=== PATIENT | female | born 1995 | race Caucasian/White ===

== ENCOUNTER 2017-11-01 13:41 | Emergency (ER) | payer BC ==
[~2017-11-01] VITALS: Ht 170.2 cm; Wt 59.0 kg
--- NOTE | 2017-11-01 13:44 | ER Report ---
History and Physical Time Seen By MD: 13:44 HPI/ROS CHIEF COMPLAINT: Vaginal bleeding HISTORY OF PRESENT ILLNESS: 22-year-old female reports concern for miscarriage based on Google search for vaginal bleeding. Her last period was from October 06 to October 09. He is expecting her period in a few days but has noticed some mild but dark vaginal bleeding recently. Feels like premenstrual spotting approximately 1 panty liner per day onset was 2 weeks ago. She recently started an antidepressant duloxetine this month is unsure if it is improving her depression she denies any suicidal thoughts. No fevers chills nausea or vomiting. No other concerns or complaints today. She has not tried a home test. REVIEW OF SYSTEMS: Constitutional: No fever, no chills. Eyes: No discharge. ENT: No sore throat. Cardiovascular: No chest pain, no palpitations. Respiratory: No cough, no shortness of breath. Gastrointestinal: No abdominal pain, no vomiting. Genitourinary: No hematuria. Musculoskeletal: No back pain. Skin: No rashes. Neurological: No headache. Allergies: Coded Allergies: No Known Drug Allergies (Unverified , 11/01/17) Home Meds Active Scripts Metronidazole (Metrogel-Vaginal) 0.75 % Gel.w.appl, 1 ALAN VA BID for 7 Days, #1 BOX Prov:WESLEY COVINGTON MD 11/01/17 Reported Medications Norgestimate-Ethinyl Estradiol (TRINESSA) 1 Each Tablet, 1 EACH PO QDAY 11/01/17 Duloxetine HCl (Duloxetine HCl) 60 Mg Capsule.dr, 1 CAP PO QDAY 11/01/17 Constitutional Vital Sign - Last 24 Hours 11/01/17 11/01/17 13:41 14:31 Temp 98.4 Pulse 124 91 Resp 16 16 B/P (MAP) 133/90 125/86 (99) Pulse Ox 95 98 O2 Delivery Room Air Room Air Physical Exam General Appearance: The patient is alert, has no immediate need for airway protection and no signs of toxicity. No acute distress Eyes: Pupils equal and round no pallor or injection. ENT, Mouth: Mucous membranes are moist. Respiratory: There are no retractions, lungs are clear to auscultation. Cardiovascular: Regular rate and rhythm. No murmurs gallops or rubs Gastrointestinal: Abdomen is soft and non tender, no masses, bowel sounds normal. : Normal external genitalia, mild dark blood without active oozing from cause , no signs of cervicitis, no appreciable discharge, bimanual exam negative for mass or tenderness bilateral adnexa or uterus, no CMT. Chaperonne: Yoon Perez RN Neurological: Normal Skin: Warm and dry, no rashes. Musculoskeletal: Neck is supple non tender. Extremities are nontender, nonswollen and have full range of motion. No edema DIFFERENTIAL DIAGNOSIS: After history and physical exam differential diagnosis was considered for normal menses, dysfunctional uterine bleeding, menorrhagia, with 1st trimester spotting, threatened , inevitable , incomplete , sexually-transmitted infection; no signs of ovarian torsion or ectopic . Medical Decision Making Data Points Result Diagram: 11/01/17 1435 11/01/17 1435 Laboratory Hematology Test 11/01/17 13:47 11/01/17 14:35 Urine Color Maryann Urine Clarity Slightly-cloudy Urine pH 5.0 pH (4.8-9.5) Urine Specific [place] 1.025 Urine Protein Negative mg/dL (NEGATIVE) Urine Glucose (UA) Negative mg/dL (NEGATIVE) Urine Ketones Trace mg/dL (NEGATIVE) Urine Blood Moderate (NEGATIVE) Urine Nitrite Negative (NEGATIVE) Urine Bilirubin Negative (NEGATIVE) Urine Urobilinogen 4.0 mg/dL (0.2-1.9) Urine Leukocyte Esterase Trace (NEGATIVE) Urine RBC 2 /HPF (0-2/HPF) Urine WBC 18 /HPF (0-5/HPF) Urine Squamous Epithelial Cells Many /LPF (</=FEW) Urine Bacteria Few /HPF (NONE-FEW) Urine Hyaline Casts Few /LPF (NONE-FEW) Urine Mucus Few /HPF (NONE-FEW) Urine HCG, Qualitative Negative (NEGATIVE) Red Blood Count 5.63 M/uL (4.17-5.56) Mean Corpuscular Volume 87.6 fL (80.0-96.0) Mean Corpuscular Hemoglobin 29.4 pg (26.0-33.0) Mean Corpuscular Hemoglobin Concent 33.6 g/dL (32.0-36.0) Red Cell Distribution Width 13.4 % (11.5-14.5) Mean Platelet Volume 9.1 fL (7.2-11.1) Neutrophils (%) (Auto) 56.2 % (39.4-72.5) Lymphocytes (%) (Auto) 29.9 % (17.6-49.6) Monocytes (%) (Auto) 11.2 % (4.1-12.4) Eosinophils (%) (Auto) 1.9 % (0.4-6.7) Basophils (%) (Auto) 0.8 % (0.3-1.4) Nucleated RBC Relative Count (auto) 0.1 /100WBC Neutrophils # (Auto) 2.5 K/uL (2.0-7.4) Lymphocytes # (Auto) 1.4 K/uL (1.3-3.6) Monocytes # (Auto) 0.5 K/uL (0.3-1.0) Eosinophils # (Auto) 0.1 K/uL (0.0-0.5) Basophils # (Auto) 0.0 K/uL (0.0-0.1) Nucleated RBC Absolute Count (auto) 0.01 K/uL Peripheral Blood Smear No Y/N Sodium Level 140 mmol/L (137-145) Potassium Level 3.9 mmol/L (3.5-5.0) Chloride Level 100 mmol/L (98-107) Carbon Dioxide Level 24 mmol/L (22-31) Blood Urea Nitrogen 12 mg/dl (7-18) Creatinine 0.80 mg/dl (0.52-1.04) Glomerular Filtration Rate Calc > 60.0 Random Glucose 95 mg/dl (75-110) Calcium Level 9.9 mg/dl (8.4-10.2) Chemistry Test 11/01/17 13:47 11/01/17 14:35 Urine Color Maryann Urine Clarity Slightly-cloudy Urine pH 5.0 pH (4.8-9.5) Urine Specific [place] 1.025 Urine Protein Negative mg/dL (NEGATIVE) Urine Glucose (UA) Negative mg/dL (NEGATIVE) Urine Ketones Trace mg/dL (NEGATIVE) Urine Blood Moderate (NEGATIVE) Urine Nitrite Negative (NEGATIVE) Urine Bilirubin Negative (NEGATIVE) Urine Urobilinogen 4.0 mg/dL (0.2-1.9) Urine Leukocyte Esterase Trace (NEGATIVE) Urine RBC 2 /HPF (0-2/HPF) Urine WBC 18 /HPF (0-5/HPF) Urine Squamous Epithelial Cells Many /LPF (</=FEW) Urine Bacteria Few /HPF (NONE-FEW) Urine Hyaline Casts Few /LPF (NONE-FEW) Urine Mucus Few /HPF (NONE-FEW) Urine HCG, Qualitative Negative (NEGATIVE) White Blood Count 4.5 k/uL (4.5-11.0) Red Blood Count 5.63 M/uL (4.17-5.56) Hemoglobin 16.6 g/dL (12.0-16.0) Hematocrit 49.3 % (34.0-47.0) Mean Corpuscular Volume 87.6 fL (80.0-96.0) Mean Corpuscular Hemoglobin 29.4 pg (26.0-33.0) Mean Corpuscular Hemoglobin Concent 33.6 g/dL (32.0-36.0) Red Cell Distribution Width 13.4 % (11.5-14.5) Platelet Count 252 K/uL (150-450) Mean Platelet Volume 9.1 fL (7.2-11.1) Neutrophils (%) (Auto) 56.2 % (39.4-72.5) Lymphocytes (%) (Auto) 29.9 % (17.6-49.6) Monocytes (%) (Auto) 11.2 % (4.1-12.4) Eosinophils (%) (Auto) 1.9 % (0.4-6.7) Basophils (%) (Auto) 0.8 % (0.3-1.4) Nucleated RBC Relative Count (auto) 0.1 /100WBC Neutrophils # (Auto) 2.5 K/uL (2.0-7.4) Lymphocytes # (Auto) 1.4 K/uL (1.3-3.6) Monocytes # (Auto) 0.5 K/uL (0.3-1.0) Eosinophils # (Auto) 0.1 K/uL (0.0-0.5) Basophils # (Auto) 0.0 K/uL (0.0-0.1) Nucleated RBC Absolute Count (auto) 0.01 K/uL Peripheral Blood Smear No Y/N Glomerular Filtration Rate Calc > 60.0 Calcium Level 9.9 mg/dl (8.4-10.2) Urinalysis Test 11/01/17 13:47 Urine Color Maryann Urine Clarity Slightly-cloudy Urine pH 5.0 pH (4.8-9.5) Urine Specific [place] 1.025 Urine Protein Negative mg/dL (NEGATIVE) Urine Glucose (UA) Negative mg/dL (NEGATIVE) Urine Ketones Trace mg/dL (NEGATIVE) Urine Blood Moderate (NEGATIVE) Urine Nitrite Negative (NEGATIVE) Urine Bilirubin Negative (NEGATIVE) Urine Urobilinogen 4.0 mg/dL (0.2-1.9) Urine Leukocyte Esterase Trace (NEGATIVE) Urine RBC 2 /HPF (0-2/HPF) Urine WBC 18 /HPF (0-5/HPF) Urine Squamous Epithelial Cells Many /LPF (</=FEW) Urine Bacteria Few /HPF (NONE-FEW) Urine Hyaline Casts Few /LPF (NONE-FEW) Urine Mucus Few /HPF (NONE-FEW) Urine HCG, Qualitative Negative (NEGATIVE) Microbiology Microbiology Date/Time Source Procedure Growth Status 11/01/17 14:25 Pelvic SRAVAN Preparation - Final Complete 11/01/17 14:25 Vaginal Wet Prep - Final Complete ED Course/Re-evaluation ED Course Plan of care agreed upon predators placed. Urine screen negative. Pelvic exam negative chlamydia and gonorrhea swabs SRAVAN sent Re-evaluation 11/01/2017 2:51:09 pm pelvic swab results discussed home care medication use follow-up and reasons to return to the ED were discussed she is on control pills already I recommended she follow up with her PCP to assess for need for medication change to prevent further bleeding. Decision to Disposition Date: Nov 01, 2017 Decision to Disposition Time: 14:45 Depart Departure Latest Vital Signs Vital Signs Date Time Temp Pulse Resp B/P (MAP) Pulse Ox O2 Delivery O2 Flow Rate FiO2 11/01/17 14:31 91 16 125/86 (99) 98 Room Air 11/01/17 13:41 98.4 Impression: Primary Impression: Dysfunctional uterine bleeding Additional Impression: BV (bacterial vaginosis) Condition: Improved Disposition: HOME OR SELF-CARE New Scripts Metronidazole (Metrogel-Vaginal) 0.75 % Gel.w.appl 1 ALAN VA BID for 7 Days, #1 BOX Prov: WESLEY COVINGTON MD 11/01/17 Patient Instructions: Bacterial Vaginosis (ED), Dysfunctional Uterine Bleeding (ED) Problem Qualifiers WESLEY COVINGTON MD Nov 01, 2017 13:44
[2017-11-01] MEDS ORDERED: NORG1TAB98 PO (13:49)
[2017-11-01] MEDS ORDERED: DULO60CA7 PO (13:49)
[2017-11-01 14:46] LABS: PLATELET COUNT, AUTOMATED 252 K/uL (150-450)
[2017-11-01] MEDS ORDERED: METR70GE2 VA (14:48)
[2017-11-01 15:04] VITALS: BP 118/69
== END 2017-11-01 15:04 | disposition home or self-care (01) ==
LOC: ER 14:10
DX: N76.0 Acute vaginitis (principal); N93.8 Other specified abnormal uterine and vaginal bleeding
CPT/HCPCS: 36415; 81001; 81025; 82310; 82374; 82435; 82565; 82947; 84132; 84295; 84520; 85025; 87210; 87491; 87591; 99283

== ENCOUNTER 2017-12-26 02:57 | Emergency (ER) | payer BC ==
[~2017-12-26 02:57] MED LIST: DULO60CA7 PO; METR70GE2 VA; NORG1TAB98 PO
--- NOTE | 2017-12-26 03:09 | ER Report ---
History and Physical Time Seen By MD: 03:01 HPI/ROS CHIEF COMPLAINT: Back pain HISTORY OF PRESENT ILLNESS: 22-year-old female presents complaining of right flank pain. She states she's had chronic low back pain for many years. Over the last week. She's been having more right sided back pain with urinary urgency. Patient states her last menstrual was one month ago. Patient denies nausea or vomiting. REVIEW OF SYSTEMS: Respiratory: No cough, no dyspnea. Cardiovascular: No chest pain, no palpitations. Gastrointestinal: No vomiting, no abdominal pain. Musculoskeletal: As above Allergies: Coded Allergies: No Known Drug Allergies (Unverified , 11/01/17) Home Meds Active Scripts Cephalexin 500 Mg Tab (KEFLEX 500 MG TAB) 500 Mg Tablet, 500 MG PO TID for infection, #20 TAB Prov:BEATRIZ COLLINS DO 12/26/17 Reported Medications Norgestimate-Ethinyl Estradiol (TRINESSA) 1 Each Tablet, 1 EACH PO QDAY 11/01/17 Duloxetine HCl (Duloxetine HCl) 60 Mg Capsule.dr, 30 MG PO QDAY 11/01/17 Discontinued Scripts Metronidazole (Metrogel-Vaginal) 0.75 % Gel.w.appl, 1 ALAN VA BID for 7 Days, #1 BOX Prov:WESLEY COVINGTON MD 11/01/17 Reviewed Nurses Notes: Yes Old Medical Records Reviewed: Yes Constitutional Vital Sign - Last 24 Hours 12/26/17 12/26/17 12/26/17 12/26/17 03:06 03:12 03:15 03:27 Temp 98.0 Pulse 74 73 63 Resp 16 B/P (MAP) 130/80 117/86 (96) Pulse Ox 97 97 99 O2 Delivery Room Air 12/26/17 12/26/17 03:42 03:47 Pulse ??? 87 Pulse Ox 95 84 Physical Exam Vital signs stable, afebrile, pulse ox normal General Appearance: The patient is alert, has no immediate need for airway protection and no current signs of toxicity. HEENT: Pupils equal and round no injection. Oropharynx without redness or exudate Respiratory: Chest is non tender, lungs are clear to auscultation. Cardiac: regular rate and rhythm Gastrointestinal: Abdomen is soft and non tender, no masses, bowel sounds normal. Bilateral CVA tenderness Musculoskeletal: Neck: Neck is supple and non tender. No lymphadenopathy Extremities have full range of motion and are non tender. Skin: No rashes or lesions. DIFFERENTIAL DIAGNOSIS: After history and physical exam differential diagnosis was considered for back pain including but not limited to muscular pain, herniated disc, spine fracture, intra-abdominal causes and urinary tract infection. Medical Decision Making Data Points Laboratory Hematology Test 12/26/17 03:01 Urine Color Yellow Urine Clarity Cloudy Urine pH 6.0 pH (4.8-9.5) Urine Specific [place] 1.023 Urine Protein 500 mg/dL (NEGATIVE) Urine Glucose (UA) Negative mg/dL (NEGATIVE) Urine Ketones Trace mg/dL (NEGATIVE) Urine Blood Negative (NEGATIVE) Urine Nitrite Negative (NEGATIVE) Urine Bilirubin Negative (NEGATIVE) Urine Urobilinogen Negative mg/dL (0.2-1.9) Urine Leukocyte Esterase Small (NEGATIVE) Urine RBC 26 /HPF (0-2/HPF) Urine WBC 384 /HPF (0-5/HPF) Urine Squamous Epithelial Cells Many /LPF (</=FEW) Urine Transitional Epithelial Cells Many /LPF (NONE-FEW) Urine Bacteria Negative /HPF (NONE-FEW) Urine Mucus None /HPF (NONE-FEW) Urine HCG, Qualitative Negative (NEGATIVE) Chemistry Test 12/26/17 03:01 Urine Color Yellow Urine Clarity Cloudy Urine pH 6.0 pH (4.8-9.5) Urine Specific [place] 1.023 Urine Protein 500 mg/dL (NEGATIVE) Urine Glucose (UA) Negative mg/dL (NEGATIVE) Urine Ketones Trace mg/dL (NEGATIVE) Urine Blood Negative (NEGATIVE) Urine Nitrite Negative (NEGATIVE) Urine Bilirubin Negative (NEGATIVE) Urine Urobilinogen Negative mg/dL (0.2-1.9) Urine Leukocyte Esterase Small (NEGATIVE) Urine RBC 26 /HPF (0-2/HPF) Urine WBC 384 /HPF (0-5/HPF) Urine Squamous Epithelial Cells Many /LPF (</=FEW) Urine Transitional Epithelial Cells Many /LPF (NONE-FEW) Urine Bacteria Negative /HPF (NONE-FEW) Urine Mucus None /HPF (NONE-FEW) Urine HCG, Qualitative Negative (NEGATIVE) Urinalysis Test 12/26/17 03:01 Urine Color Yellow Urine Clarity Cloudy Urine pH 6.0 pH (4.8-9.5) Urine Specific [place] 1.023 Urine Protein 500 mg/dL (NEGATIVE) Urine Glucose (UA) Negative mg/dL (NEGATIVE) Urine Ketones Trace mg/dL (NEGATIVE) Urine Blood Negative (NEGATIVE) Urine Nitrite Negative (NEGATIVE) Urine Bilirubin Negative (NEGATIVE) Urine Urobilinogen Negative mg/dL (0.2-1.9) Urine Leukocyte Esterase Small (NEGATIVE) Urine RBC 26 /HPF (0-2/HPF) Urine WBC 384 /HPF (0-5/HPF) Urine Squamous Epithelial Cells Many /LPF (</=FEW) Urine Transitional Epithelial Cells Many /LPF (NONE-FEW) Urine Bacteria Negative /HPF (NONE-FEW) Urine Mucus None /HPF (NONE-FEW) Urine HCG, Qualitative Negative (NEGATIVE) ED Course/Re-evaluation ED Course Patient was admitted to an examination room. H&P was done. The differential diagnosis was considered. On clinical examination. Patient has some back pain. She does have some CVA tenderness. Patient's medicated with [place] 5/325 for pain relief. Urinalysis and test are ordered. Urinalysis shows urinary tract infection. test is negative. Patient be treated with Keflex 500 mg 3 times daily. She's given an initial dose of 1000 mg by mouth here. She is advised to use ibuprofen for pain relief. She is discharged with 2 [place] for temporary pain relief. A urinary cultures ordered. Decision to Disposition Date: Dec 26, 2017 Decision to Disposition Time: 03:39 Depart Departure Latest Vital Signs Vital Signs Date Time Temp Pulse Resp B/P (MAP) Pulse Ox O2 Delivery O2 Flow Rate FiO2 12/26/17 03:47 87 84 12/26/17 03:15 117/86 (96) 12/26/17 03:06 98.0 16 Room Air Impression: Primary Impression: Urinary tract infection Condition: Improved Disposition: HOME OR SELF-CARE Referrals: TERI HE MD New Scripts Cephalexin 500 Mg Tab (KEFLEX 500 MG TAB) 500 Mg Tablet 500 MG PO TID for infection, #20 TAB Prov: BEATRIZ COLLINS 12/26/17 Patient Instructions: Urinary Tract Infection in Women (ED) Additional Instructions: Take Azo-Standard and Uristat Take ibuprofen 200 mg 3 tablets 3 times a day for inflammatory pain relief Take your antibiotic Keflex 500 mg 3 times daily until gone Follow-up with primary care or [facility] if unimproved in 2-3 days for urinary culture check Problem Qualifiers Primary Impression: Urinary tract infection Urinary tract infection type: acute cystitis Hematuria presence: without hematuria Qualified Codes: N30.00 - Acute cystitis without hematuria BEATRIZ COLLINS DO Dec 26, 2017 03:09
[2017-12-26] MEDS ORDERED: APAP/HYDROCODONE 325/5 TAB PO ONE (03:10)
[2017-12-26] MEDS ORDERED: ONDANSETRON 4 MG ODT TABDP SL ONE (03:10)
[2017-12-26 03:15] VITALS: BP 117/86
[2017-12-26] MEDS ORDERED: ACET/HYDROC 5/325MG TH ER ONLY 2 TAB/BOTTLE PO ONE (03:35)
[2017-12-26] MEDS ORDERED: CEPHALEXIN MONO 500 MG CAP PO ONE (03:35)
[2017-12-26] MEDS ORDERED: CEPH500T7 PO (03:41)
== END 2017-12-26 03:50 | disposition home or self-care (01) ==
LOC: ER 03:00
DX: N30.00 Acute cystitis without hematuria (principal)
CPT/HCPCS: 81001; 81025; 87077; 87088; 87186; 99283; S0119